=== PATIENT | female | born 1950 | race African-American/Black ===

== ENCOUNTER 2023-05-24 03:40 | Emergency (ER) | payer OTHER, MEDICAID ==
[~2023-05-24] VITALS: Ht 152.4 cm; Wt 49.9 kg
--- NOTE | 2023-05-24 03:43 | NUR ---
Placed in room 6 . Placed on property assessment monitor, blood pressure machine and pulse oximeter. To gown for exam. Side rails up. Seizure precautions in place. Seizure pads applied to will. Report given to Padmaja Angeles.
--- NOTE | 2023-05-24 03:44 | NUR ---
ER at bedside examining patient.
[2023-05-24 03:45] VITALS: BP_SYST 138; PULSE 90; RESP 16; TEMP 97.9; O2SAT 95
[2023-05-24] MEDS ORDERED: levETIRAcetam 1,000 MG in NS 90 ML IV ONE (03:45)
[2023-05-24] MEDS ORDERED: MIDAZOLAM HCL 5 MG/5 ML VIAL IVP ONE (03:45)
--- NOTE | 2023-05-24 03:48 | NUR ---
PT BIB BY EMS C/O TONIC CLONIC WITNESSED SEIZURE. EMS STATES THAT SHE COMES FROM A HOTEL SHE WAS STAYING AT WITH HER FAMILY. EMS STATES THAT THE FAMILY SAID IT WAS A 6 MINUTE LONG SEIZURE WHICH SHE WAS IN BED FOR. EMS DENIES HEADTRAUMA. PT HAS A HX OF HTN, DM, SERIZURES SHE TAKES KEPRA FOR, AND A BRAIN ANEURYSM. EMS STATES PT LAST RECORDED SEIZURE WAS A YEAR AGO ACCORDING TO FAMILY. PT EYES OPEN SPONTANEOUSLY. PT IS ALERT TO PERSN AND PLACE. PT CAN TELL US HER NAME AND THAT SHE IS IN A HOSPITAL BUT PT DOES NOT KNOW THEIR BIRTHDAY OR THE SITUATION. PT DENIES HEADACHE, AND BLURRED VISON. PT DENIES SOB OR CHEST PAIN. PT DENIES ABDOMINAL PAIN. PT DENIES N,V,D. PT DENIES PAIN AT THIS TIME. PT STATES THAT SHE IS VERY TIRED AND WANTS TO REST. PLAN OF CARE CONTINUES.
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
--- NOTE | 2023-05-24 03:50 | NUR ---
# 20 gauge angiocath placed to RIGHT AC. Use of asceptic technique. Opsite placed over site. Blood return noted. Blood for lab drawn from site. Flushed with 10 cc of normal saline. No evidence of infiltration noted. Patient tolerated well.
[2023-05-24] MEDS ORDERED: levETIRAcetam 500 MG IV PREMIX 100 ML IV ONE ×2 (04:00)
--- NOTE | 2023-05-24 04:06 | NUR ---
PT STARTED ON 1000 MG KEPRA IVF ORDERED BY ER MD. PLAN OF CARE CONTINUES.
[2023-05-24 04:14] VITALS: BP_SYST 136; PULSE 92; RESP 20; TEMP 97.7; O2SAT 94
--- NOTE | 2023-05-24 04:15 | NUR ---
pt bs 98. made aware nop new orders at this time.
--- NOTE | 2023-05-24 04:33 | NUR ---
PT TAKEN TO CT BY
[2023-05-24 04:42] LABS: BASOPHILS # (AUTO) 0.1 K/uL (0.0-0.2); BASOPHILS % (AUTO) 1.1 % (0.0-2.0); EOSINOPHILS # (AUTO) 0.3 K/uL (0.0-0.4); EOSINOPHILS % (AUTO) 4.2 % (0.0-4.0); HEMATOCRIT 35.3 % (36-48); HEMOGLOBIN 11.5 g/dL (12.0-16.0); LYMPHOCYTES % (AUTO) 42.4 % (20.5-51.5); MEAN CORPUSCULAR HEMOGLOBIN 29 pg (27-31); MEAN CORPUSCULAR HGB CONC 33 % (32-36); MEAN CORPUSCULAR VOLUME 90 fL (79.0-98.0); MONOCYTES # (AUTO) 0.5 K/uL (0.0-1.0); MONOCYTES % (AUTO) 6.7 % (1.7-9.3); NEUTROPHILS # (AUTO) 3.3 K/uL (1.8-7.7); NEUTROPHILS % (AUTO) 45.6 % (40.0-70.0); PLATELET COUNT (AUTO) 285 K/uL (130-430); RED BLOOD CELL COUNT(AUTO) 3.93 MIL/uL (4.2-6.2); RED CELL DISTRIBUTION WIDTH 13.1 % (9.0-15.0); WHITE BLOOD COUNT (AUTO) 7.2 K/uL (4.8-10.8)
[2023-05-24 04:55] LABS: PROTHROMBIN TIME 9.9 SECS (9.5-12.5)
--- NOTE | 2023-05-24 04:58 | NUR ---
Pt informed that the dr ordered a [facility] drug screen pt states " i dont want all these test i dont consent to it" er dr made aware no new orders at this time.
[2023-05-24 05:03] LABS: ALANINE AMINOTRANSFERASE 13 U/L (12-78); ALBUMIN 3.3 g/dL (3.4-4.8); ANION GAP 13 (5-15); ASPARTATE AMINOTRANSFERASE 18 U/L (10-37); CALCIUM 8.1 mg/dL (8.4-11.0); CHLORIDE 106 mmol/L (98-107); CREATININE 0.86 mg/dL (0.55-1.30); GLUCOSE 122 mg/dL (74-106); TOTAL BILIRUBIN 0.1 mg/dL (0.0-1.0); UREA NITROGEN, BLOOD 15 mg/dL (8-21)
[2023-05-24 05:06] LABS: THYROID STIMULATING HORMONE 4.32 uIu/mL (0.36-3.74)
[2023-05-24 05:07] LABS: GFR AFRICAN AMERICAN 84 mL/min (>90)
--- NOTE | 2023-05-24 05:27 | NUR ---
Patient does not wish to proceed with medical care recommended by dr. hendrix. Patient given information related to possible complications, up to and including , which could occur as a result of leaving hospital at this time. Patient verbalizes understanding of risks involved leaving against medical advice. Patient has signed AMA form.
== END 2023-05-24 05:27 | disposition left against medical advice (07) ==
LOC: SED 03:40
DX: R56.9 Unspecified convulsions (principal); E11.9 Type 2 diabetes mellitus without complications; I10 Essential (primary) hypertension; Z79.899 Other long term (current) drug therapy
CPT/HCPCS: 99285; 96365; 70450; 71045; 96375; 80053; 82140; 82962; 83735; 84100; 84443; 85025; 85610; 84484; 36415; 93005; 76376; 83605; J1953; J2250

== ENCOUNTER 2023-07-06 15:03 | Inpatient (IN) | payer BC, MEDICAID ==
[~2023-07-06] VITALS: Ht 157.5 cm; Wt 51.3 kg
[2023-07-06 15:09] VITALS: BP_SYST 128; PULSE 85; RESP 18; TEMP 97.2; O2SAT 98
[2023-07-06] MEDS ORDERED: NACL 0.9% 1,000 ML IV ONE (15:30)
[2023-07-06] MEDS ORDERED: ONDANSETRON HCL 4 MG/2 ML VIAL IVP ONE (15:30)
[2023-07-06] MEDS ORDERED: LORazepam 2 MG/ML VIAL IVP ONE (15:30)
[2023-07-06] MEDS ORDERED: levETIRAcetam 750 MG in NS 100 ML IV ONE (15:30)
[2023-07-06 16:05] LABS: BASOPHILS # (AUTO) 0.1 K/uL (0.0-0.2); BASOPHILS % (AUTO) 0.4 % (0.0-2.0); HEMATOCRIT 37.6 % (36-48); HEMOGLOBIN 12.1 g/dL (12.0-16.0); LYMPHOCYTES # (AUTO) 1.3 K/uL (1.0-5.5); LYMPHOCYTES % (AUTO) 6.1 % (20.5-51.5); MEAN CORPUSCULAR HEMOGLOBIN 29 pg (27-31); MEAN CORPUSCULAR HGB CONC 32 % (32-36); MEAN CORPUSCULAR VOLUME 89 fL (79.0-98.0); MONOCYTES # (AUTO) 0.8 K/uL (0.0-1.0); MONOCYTES % (AUTO) 3.9 % (1.7-9.3); NEUTROPHILS # (AUTO) 18.5 K/uL (1.8-7.7); NEUTROPHILS % (AUTO) 89.6 % (40.0-70.0); PLATELET COUNT (AUTO) 339 K/uL (130-430); RED BLOOD CELL COUNT(AUTO) 4.24 MIL/uL (4.2-6.2); RED CELL DISTRIBUTION WIDTH 13.2 % (9.0-15.0); WHITE BLOOD COUNT (AUTO) 20.6 K/uL (4.8-10.8)
[2023-07-06 16:15] LABS: ANION GAP 16 (5-15); CALCIUM 9.5 mg/dL (8.4-11.0); CARBON DIOXIDE 17 mmol/L (23-29); CHLORIDE 100 mmol/L (98-107); CREATININE 0.96 mg/dL (0.55-1.30); GLUCOSE 159 mg/dL (74-106); SODIUM SERUM 133 mmol/L (136-145); UREA NITROGEN, BLOOD 14 mg/dL (8-21)
[2023-07-06 16:22] LABS: ALANINE AMINOTRANSFERASE 12 U/L (12-78); ALBUMIN 3.6 g/dL (3.4-4.8); ASPARTATE AMINOTRANSFERASE 21 U/L (10-37); GFR AFRICAN AMERICAN 74 mL/min (>90); GFR NON AFRICAN-AMERICAN 61 mL/min (>90); TOTAL BILIRUBIN 0.4 mg/dL (0.0-1.0); TOTAL PROTEIN, SERUM 7.7 g/dL (6.4-8.3)
[2023-07-06] MEDS ORDERED: ONDANSETRON HCL 4 MG/2 ML VIAL ONE (17:44)
[2023-07-06] MEDS ORDERED: LORazepam 2 MG/ML VIAL ONE (17:45)
[2023-07-06 19:47] LABS: BILIRUBIN,URINE NEGATIVE (NEGATIVE); BLOOD, URINE 3+ (NEGATIVE); CLARITY/URINE Clear (CLEAR); COLOR,URINE YELLOW (YELLOW); GLUCOSE,URINE NEGATIVE (NEGATIVE); KETONES,URINE 1+ (NEGATIVE); LEUKOCYTE ESTERASE ,URINE NEGATIVE (NEGATIVE); NITRITE, URINE NEGATIVE (NEGATIVE); PH,URINE 6.5 (5.0-8.0); PROTEIN URINE 2+ (NEGATIVE); UROBILINOGEN,URINE 0.2 (0.2-1.0)
[2023-07-06 19:56] LABS: BACTERIA,URINE FEW /HPF (None Seen); RBC,URINE 20-50 /HPF (0-3); WBC,URINE 0-3 /HPF (0-3)
[2023-07-06 19:57] LABS: MUCUS,URINE None Seen /LPF (None Seen)
[2023-07-06] MEDS ORDERED: cefTRIAXone 1 GM in D5W 50 ML IV ONE (20:15)
[2023-07-06] MEDS ORDERED: LORazepam 2 MG/ML VIAL IVP PRN (20:15)
[2023-07-06] MEDS: levETIRAcetam 750 MG in NS 100 ML IV SCH (21:00)
[2023-07-06] MEDS ORDERED: cefTRIAXone 1 GM VIAL ONE (21:28)
[2023-07-06 22:30] VITALS: BP_SYST 132; PULSE 82; RESP 18; TEMP 100.4; O2SAT 98
[2023-07-06 22:39] VITALS: O2SAT 98
[2023-07-06] MEDS ORDERED: ACETAMINOPHEN 650 MG SUPP.RECT RC ONE (23:00)
[2023-07-07] VITALS (7 sets, daily range): BP systolic 103–129; PULSE 75–84; RESP 16–20; TEMP 98.8–99.1; O2SAT 97–99
[2023-07-07] MEDS ORDERED: PIPERACILLIN/TAZOBACTAM 3.375 GM/VIAL (ZOSYN) IV ONE (03:06)
[2023-07-07] MEDS: PIPERACILLIN/TAZO 3.375/DEX-IS 50 ML IV SCH ×3 (05:20→19:08)
[2023-07-07 06:53] LABS: BASOPHILS # (AUTO) 0.2 K/uL (0.0-0.2); BASOPHILS % (AUTO) 1.1 % (0.0-2.0); EOSINOPHILS # (AUTO) 0.1 K/uL (0.0-0.4); EOSINOPHILS % (AUTO) 0.4 % (0.0-4.0); HEMATOCRIT 38.9 % (36-48); HEMOGLOBIN 12.7 g/dL (12.0-16.0); LYMPHOCYTES # (AUTO) 2.1 K/uL (1.0-5.5); MEAN CORPUSCULAR HEMOGLOBIN 29 pg (27-31); MEAN CORPUSCULAR HGB CONC 33 % (32-36); MEAN CORPUSCULAR VOLUME 88 fL (79.0-98.0); MONOCYTES # (AUTO) 1.1 K/uL (0.0-1.0); MONOCYTES % (AUTO) 7.8 % (1.7-9.3); NEUTROPHILS # (AUTO) 10.5 K/uL (1.8-7.7); NEUTROPHILS % (AUTO) 75.7 % (40.0-70.0); PLATELET COUNT (AUTO) 309 K/uL (130-430); RED BLOOD CELL COUNT(AUTO) 4.43 MIL/uL (4.2-6.2); RED CELL DISTRIBUTION WIDTH 13.3 % (9.0-15.0); WHITE BLOOD COUNT (AUTO) 13.9 K/uL (4.8-10.8)
[2023-07-07 07:02] LABS: CALCIUM 9.4 mg/dL (8.4-11.0); CREATININE 0.84 mg/dL (0.55-1.30); POTASSIUM 3.6 mmol/L (3.5-5.1)
[2023-07-07 07:06] LABS: ALBUMIN 3.6 g/dL (3.4-4.8); TOTAL BILIRUBIN 0.5 mg/dL (0.0-1.0); TOTAL PROTEIN, SERUM 7.6 g/dL (6.4-8.3)
[2023-07-07] MEDS: levETIRAcetam 750 MG in NS 100 ML IV SCH ×2 (08:22→20:40)
[2023-07-08] VITALS: BP_SYST 108; PULSE 74; RESP 18; TEMP 98.6; O2SAT 97
[2023-07-08] MEDS: PIPERACILLIN/TAZO 3.375/DEX-IS 50 ML IV SCH ×3 (00:02→12:32)
[2023-07-08 04:44] LABS: BASOPHILS # (AUTO) 0.1 K/uL (0.0-0.2); BASOPHILS % (AUTO) 1.3 % (0.0-2.0); EOSINOPHILS # (AUTO) 0.2 K/uL (0.0-0.4); EOSINOPHILS % (AUTO) 1.7 % (0.0-4.0); HEMATOCRIT 35.5 % (36-48); HEMOGLOBIN 11.8 g/dL (12.0-16.0); LYMPHOCYTES # (AUTO) 1.7 K/uL (1.0-5.5); LYMPHOCYTES % (AUTO) 17.3 % (20.5-51.5); MEAN CORPUSCULAR HEMOGLOBIN 29 pg (27-31); MEAN CORPUSCULAR HGB CONC 33 % (32-36); MEAN CORPUSCULAR VOLUME 88 fL (79.0-98.0); MONOCYTES # (AUTO) 0.7 K/uL (0.0-1.0); NEUTROPHILS % (AUTO) 72.7 % (40.0-70.0); PLATELET COUNT (AUTO) 277 K/uL (130-430); RED BLOOD CELL COUNT(AUTO) 4.05 MIL/uL (4.2-6.2); WHITE BLOOD COUNT (AUTO) 9.7 K/uL (4.8-10.8)
[2023-07-08 05:00] LABS: CALCIUM 8.7 mg/dL (8.4-11.0); CREATININE 0.68 mg/dL (0.55-1.30)
[2023-07-08 05:20] LABS: POTASSIUM 2.9 mmol/L (3.5-5.1)
[2023-07-08] MEDS: levETIRAcetam 750 MG in NS 100 ML IV SCH (10:21)
[2023-07-08 12:02] VITALS: BP_SYST 127; PULSE 83; RESP 18; TEMP 98.2; O2SAT 97
[2023-07-08] MEDS ORDERED: POTASSIUM CHLORIDE 20 MEQ TAB.PRT.SR PO ONE (13:30)
[2023-07-08] MEDS ORDERED: KCL 20 mEq in 100 mL (PREMIX) 100 ML IV SCH (14:00)
[2023-07-08 14:10] VITALS: O2SAT 94
== END 2023-07-08 15:00 | disposition left against medical advice (07) | DRG 871 ==
LOC: SED 15:03 → STU 20:02 → SMU 07-07 23:10
PROVIDERS: ADMIT Internal Medicine; ATTEND Internal Medicine
DX: A41.9 Sepsis, unspecified organism (principal); J18.9 Pneumonia, unspecified organism; N39.0 Urinary tract infection, site not specified; I10 Essential (primary) hypertension; Z20.822 Contact with and (suspected) exposure to COVID-19; E11.9 Type 2 diabetes mellitus without complications; E87.6 Hypokalemia; R56.9 Unspecified convulsions; F12.90 Cannabis use, unspecified, uncomplicated
CPT/HCPCS: 36415; 71045; 80048; 80053; 81000; 83605; 83735; 83880; 84484; 85025; 87040; 93005; 95816; 96365; 96367; 96375; 96376; 97163-GP; 99285; G0378; J0696; J1953; J2060; J2405; J2543; J7050; J7060

== ENCOUNTER 2023-08-15 13:13 | Emergency (ER) | payer BC, MEDICAID ==
[~2023-08-15] VITALS: Ht 157.5 cm; Wt 49.9 kg
[2023-08-15 13:30] VITALS: BP_SYST 142; PULSE 97; RESP 20; TEMP 98.2; O2SAT 98
[2023-08-15 14:23] LABS: BASOPHILS # (AUTO) 0.1 K/uL (0.0-0.2); BASOPHILS % (AUTO) 0.9 % (0.0-2.0); EOSINOPHILS # (AUTO) 0.2 K/uL (0.0-0.4); EOSINOPHILS % (AUTO) 1.6 % (0.0-4.0); HEMATOCRIT 31.3 % (36-48); HEMOGLOBIN 10.5 g/dL (12.0-16.0); LYMPHOCYTES # (AUTO) 1.3 K/uL (1.0-5.5); LYMPHOCYTES % (AUTO) 12.4 % (20.5-51.5); MEAN CORPUSCULAR HEMOGLOBIN 30 pg (27-31); MEAN CORPUSCULAR HGB CONC 34 % (32-36); MEAN CORPUSCULAR VOLUME 89 fL (79.0-98.0); MONOCYTES # (AUTO) 0.6 K/uL (0.0-1.0); MONOCYTES % (AUTO) 5.5 % (1.7-9.3); NEUTROPHILS # (AUTO) 8.5 K/uL (1.8-7.7); NEUTROPHILS % (AUTO) 79.6 % (40.0-70.0); PLATELET COUNT (AUTO) 300 K/uL (130-430); RED BLOOD CELL COUNT(AUTO) 3.54 MIL/uL (4.2-6.2); RED CELL DISTRIBUTION WIDTH 13.7 % (9.0-15.0); WHITE BLOOD COUNT (AUTO) 10.6 K/uL (4.8-10.8)
[2023-08-15] MEDS ORDERED: levETIRAcetam 500 MG IV PREMIX 100 ML IV ONE (14:45)
[2023-08-15 14:50] LABS: CALCIUM 9.1 mg/dL (8.4-11.0); CREATININE 0.79 mg/dL (0.55-1.30); POTASSIUM 3.1 mmol/L (3.5-5.1)
[2023-08-15 14:57] LABS: TOTAL BILIRUBIN 0.2 mg/dL (0.0-1.0)
[2023-08-15 14:58] LABS: ALBUMIN 3.5 g/dL (3.4-4.8); TOTAL PROTEIN, SERUM 7.1 g/dL (6.4-8.3)
[2023-08-15] MEDS ORDERED: MAGNESIUM OXIDE 400 MG TABLET PO ONE (16:00)
[2023-08-15] MEDS ORDERED: POTASSIUM CHLORIDE 20 MEQ TAB.PRT.SR PO ONE (16:00)
[2023-08-15] MEDS ORDERED: LEVE500T9 PO (16:02)
[2023-08-15 17:25] VITALS: BP_SYST 147; PULSE 91; RESP 20; TEMP 98.4; O2SAT 96
== END 2023-08-15 17:26 | disposition home or self-care (01) ==
LOC: SED 13:13
DX: G40.909 Epilepsy, unspecified, not intractable, without status epilepticus (principal); E11.9 Type 2 diabetes mellitus without complications; I10 Essential (primary) hypertension; Z79.899 Other long term (current) drug therapy
CPT/HCPCS: 99284; 96365; 80053; 85025; 36415; 93005; J1953